=== PATIENT | female | born 1985 | race Caucasian/White ===

== ENCOUNTER 2018-06-28 15:50 | Inpatient (IN) ==
[2018-06-28 16:34] LABS: Baso % (Auto) 0.6 % (0.0-2.0); Eos # (Auto) 0.1 th/mm3 (0.0-0.4); Eos % (Auto) 1.4 % (0.0-4.0); Hematocrit 38.7 % (35.0-46.0); Hemoglobin 13.1 gm/dL (11.6-15.3); Lymph # (Auto) 1.9 th/mm3 (1.0-4.8); Lymph % (Auto) 42.6 % (9.0-44.0); Mean Corpuscular HGB Conc 33.8 % (32.0-36.0); Mean Corpuscular Hemoglobin 28.2 pg (27.0-34.0); Mean Corpuscular Volume 83.5 fL (80.0-100.0); Mean Platelet Volume 9.6 fL (7.0-11.0); Mono # (Auto) 0.4 th/mm3 (0.0-0.9); Mono % (Auto) 7.8 % (0.0-8.0); Neut # (Auto) 2.2 th/mm3 (1.8-7.7); Neut % (Auto) 47.6 % (16.0-70.0); Platelet Count 206 th/mm3 (150-450); Red Blood Count 4.64 mil/mm3 (4.00-5.30); Red Cell Distribution Width 13.3 % (11.6-17.2); White Blood Count 4.5 th/mm3 (4.0-11.0)
[2018-06-28 17:03] LABS: Albumin 3.1 g/dL (3.4-5.0); Anion Gap 8 meq/L (5-15); Aspartate Aminotransferase 20 U/L (15-37); Blood Urea Nitrogen 19 mg/dL (7-18); Calcium 10.3 mg/dL (8.5-10.1); Chloride 100 meq/L (98-107); Glomerular Filtration Rate Greater Than 89 mL/min (>89); Glucose,Random 342 mg/dL (74-106); Potassium 3.9 meq/L (3.5-5.1); Sodium 137 meq/L (136-145)
[2018-06-28 17:04] LABS: Alanine Aminotransferase 26 U/L (10-53)
[2018-06-28 17:13] LABS: Alkaline Phosphatase 78 U/L (45-117); Thyroid Stimulating Hormone 0.612 uIU/mL (0.358-3.740); Total Protein 8.3 g/dL (6.4-8.2)
[2018-06-28] MEDS ORDERED: Dextrose 50% in Water 50 ML Vial IV.PUSH PRN (17:28)
[2018-06-28] MEDS ORDERED: Sod Chloride 0.9% Inj 1,000 ML IV.SIG SCH (17:30)
--- NOTE | 2018-06-28 17:33 | ED ---
HPI General Chief Complaint: Psychiatric Symptoms Stated Complaint: Psych eval / [facility] Time Seen by Provider: 06/29/18 14:35 Source: patient and RN notes reviewed Mode of arrival: ambulatory Limitations: no limitations History of Present Illness HPI Narrative: 33-year-old female presents to the emergency department by police under [place] act by her psychiatrist. The patient is alert and oriented to person, place, time. She reports history of bipolar disorder and type 2 diabetes. She states she is not on any medications for her bipolar disorder. According the [place] act, she is trying to kill herself. She is taking care of by her grandmother. The patient denies any suicidal homicidal ideations to me. She denies any alcohol, tobacco, illicit drug use. She denies any symptoms or complaints. Moderate severity. Duration: constant History of same: Yes Relieving factors: medication Exacerbating factors: other (Not taking medication) Context: not taking psychiatric medications Associated psychiatric symptoms: none Associated symptoms: denies other symptoms Treatments prior to arrival: placed on mental health hold Related Data Home Medications Medication Instructions Recorded Confirmed Humalog KwikPen Insulin 10 units SUBCUT TIDAC 06/28/18 06/28/18 ibuprofen 800 mg PO DIRECTED 06/28/18 06/28/18 insulin glargine [Lantus Solostar 25 unit SUBCUT DAILY 06/28/18 06/28/18 U-100 Insulin] quetiapine 50 mg PO DAILY 06/28/18 06/28/18 risperidone 2 mg PO BID 06/28/18 06/28/18 trifluridine 1 drp LEFT EYE DIRECTED 06/28/18 06/28/18 Allergies Allergy/AdvReac Type Severity Reaction Status Date / Time No Known Allergies Allergy Verified 06/28/18 20:50 Review of Systems ROS: all other systems reviewed are negative PMFSH Social History Social History Substance History: No History of Abuse Second Hand Smoke Exposure: No Smoking Status: Never smoker How Often Do You Have a Drink Containing Alcohol: Never Recent Travel in [facility] within the Last 8 Weeks: No Recent Out of Country Travel within the Last 8 Weeks: No Exam Narrative Exam Narrative: GENERAL: Well-nourished, well-developed female patient, afebrile. Patient is alert and oriented to person, place, time. SKIN: Focused skin assessment warm/dry. HEAD: Normocephalic. Atraumatic. EYES: No scleral icterus. No injection or drainage. NECK: Supple, trachea midline. No JVD or lymphadenopathy. CARDIOVASCULAR: Regular rate and rhythm without murmurs, gallops, or rubs. RESPIRATORY: Breath sounds equal bilaterally. No accessory muscle use. Lung sounds are clear to auscultation GASTROINTESTINAL: Abdomen soft, non-tender, nondistended. MUSCULOSKELETAL: No cyanosis, or edema. BACK: Nontender without obvious deformity. No CVA tenderness. Course Initial Documented Vital Signs Temperature 98.3 F 06/28/18 16:09 Pulse Rate 138 H 06/28/18 16:09 Respiratory Rate 20 06/28/18 16:09 Blood Pressure 131/86 06/28/18 16:09 Pulse Oximetry 100 06/28/18 16:09 Last Documented Vital Signs Temperature 98.3 F 06/30/18 05:41 Pulse Rate 100 H 06/30/18 05:41 Respiratory Rate 18 06/30/18 05:41 Blood Pressure 121/65 06/30/18 05:41 Pulse Oximetry 96 06/30/18 05:41 Medical Decision Making MDM Narrative Medical decision making narrative: CMP shows hyperglycemia 342.33-year-old female presents to the emergency department under [place] act for psychiatric evaluation. CBC, CMP, TSH, alcohol level, urine drug screen, UA are ordered and pending. Patient is given normal saline 1 L IV bolus for tachycardia. Patient was placed on sliding scale insulin. CBC is unremarkable. CMP shows elevated BUN 19, hyperglycemia 342. Alcohol level is less than 3. TSH is 0.612. Urine drug screen is negative. UA shows large leukocyte esterase, few WBC clumps, moderate bacteria. UPT is negative. Patient is given Rocephin 1 g IV for UTI. She is given NS 1 L IV bolus for tachycardia. HR is now 103. She has no complaints. Patient is medically cleared for psychiatric screening and disposition. Medical Screen Exam Complete: Yes Emergency Medical Condition: Yes Differential Diagnosis Differential Diagnosis: Bipolar disorder versus schizophrenia versus medication noncompliance versus electrolyte abnormality Medical Records Medical records reviewed: Yes I reviewed the patient's medical records. Lab Data Result diagrams: 06/28/18 14:11 06/30/18 06:25 POC Results POC Urine Results Negative POC Urine Results Negative Lab Results 06/28/18 06/28/18 06/28/18 Range/Units 14:11 14:11 16:42 WBC 4.5 (4.0-11.0) th/mm3 RBC 4.64 (4.00-5.30) mil/mm3 Hgb 13.1 (11.6-15.3) gm/dL Hct 38.7 (35.0-46.0) % MCV 83.5 (80.0-100.0) fL MCH 28.2 (27.0-34.0) pg MCHC 33.8 (32.0-36.0) % RDW 13.3 (11.6-17.2) % Plt Count 206 (150-450) th/mm3 MPV 9.6 (7.0-11.0) fL Neut % (Auto) 47.6 (16.0-70.0) % Lymph % (Auto) 42.6 (9.0-44.0) % Kimble % (Auto) 7.8 (0.0-8.0) % Eos % (Auto) 1.4 (0.0-4.0) % Baso % (Auto) 0.6 (0.0-2.0) % Neut # (Auto) 2.2 (1.8-7.7) th/mm3 Lymph # (Auto) 1.9 (1.0-4.8) th/mm3 Kimble # (Auto) 0.4 (0.0-0.9) th/mm3 Eos # (Auto) 0.1 (0.0-0.4) th/mm3 Baso # (Auto) 0.0 (0.0-0.2) th/mm3 WBC Differential . Differential Comment Auto diff final Sodium 137 (136-145) meq/L Potassium 3.9 (3.5-5.1) meq/L Chloride 100 (98-107) meq/L Carbon Dioxide 29.0 (21.0-32.0) meq/L Anion Gap 8 (5-15) meq/L BUN 19 H (7-18) mg/dL Creatinine 0.67 (0.50-1.00) mg/dL Estimated GFR Greater than 89 (>89) mL/min POC Glucose 356 H (68-110) mg/dl Random Glucose 342 H (74-106) mg/dL Hemoglobin A1c (4.3-6.0) % Calcium 10.3 H (8.5-10.1) mg/dL Total Bilirubin 0.3 (0.2-1.0) mg/dL AST 20 (15-37) U/L ALT 26 (10-53) U/L Alkaline Phosphatase 78 (45-117) U/L Total Protein 8.3 H (6.4-8.2) g/dL Albumin 3.1 L (3.4-5.0) g/dL Triglycerides (42-150) mg/dL Cholesterol (120-200) mg/dL LDL Cholesterol, Calc (0-99) mg/dL HDL Cholesterol (40.0-60.0) mg/dL Cholesterol/HDL Ratio Ratio TSH 0.612 (0.358-3.740) uIU/mL Free T4 (0.76-1.46) ng/dL Urine Color (Yellw/Straw) Urine Clarity (Clear) Urine pH (5.0-8.5) Ur Specific [place] (1.002-1.035) Urine Protein (Neg-Trace) mg/dL Urine Glucose (UA) (Negative) mg/dL Urine Ketones (Negative) mg/dL Urine Occult Blood (Negative) Urine Nitrate (Negative) Urine Bilirubin (Negative) Urine Urobilinogen (Less than 2) mg/dL Ur Leukocyte Esterase (Negative) Urine RBC (0-3) /hpf Urine WBC (0-5) /hpf Urine WBC Clumps (None) Ur Squamous Epith Cells (0-5) /hpf Urine Bacteria (None) /hpf Urine Mucus (Occasional) /lpf Urine Yeast (None) /hpf Micro UA Comment Ur Microscopic Review Urine Culture Comments Urine Opiates Screen (Neg) Ur Barbiturates Screen (Neg) Ur Amphetamines Screen (Neg) U Benzodiazepines Scrn (Neg) Urine Cocaine Screen (Neg) U Cannabinoids Screen (Neg) Serum Alcohol Less than 3 (0-5) mg/dL 06/28/18 06/28/18 06/29/18 Range/Units 16:55 16:55 16:24 WBC (4.0-11.0) th/mm3 RBC (4.00-5.30) mil/mm3 Hgb (11.6-15.3) gm/dL Hct (35.0-46.0) % MCV (80.0-100.0) fL MCH (27.0-34.0) pg MCHC (32.0-36.0) % RDW (11.6-17.2) % Plt Count (150-450) th/mm3 MPV (7.0-11.0) fL Neut % (Auto) (16.0-70.0) % Lymph % (Auto) (9.0-44.0) % Kimble % (Auto) (0.0-8.0) % Eos % (Auto) (0.0-4.0) % Baso % (Auto) (0.0-2.0) % Neut # (Auto) (1.8-7.7) th/mm3 Lymph # (Auto) (1.0-4.8) th/mm3 Kimble # (Auto) (0.0-0.9) th/mm3 Eos # (Auto) (0.0-0.4) th/mm3 Baso # (Auto) (0.0-0.2) th/mm3 WBC Differential Differential Comment Sodium (136-145) meq/L Potassium (3.5-5.1) meq/L Chloride (98-107) meq/L Carbon Dioxide (21.0-32.0) meq/L Anion Gap (5-15) meq/L BUN (7-18) mg/dL Creatinine (0.50-1.00) mg/dL Estimated GFR (>89) mL/min POC Glucose 349 H (68-110) mg/dl Random Glucose (74-106) mg/dL Hemoglobin A1c (4.3-6.0) % Calcium (8.5-10.1) mg/dL Total Bilirubin (0.2-1.0) mg/dL AST (15-37) U/L ALT (10-53) U/L Alkaline Phosphatase (45-117) U/L Total Protein (6.4-8.2) g/dL Albumin (3.4-5.0) g/dL Triglycerides (42-150) mg/dL Cholesterol (120-200) mg/dL LDL Cholesterol, Calc (0-99) mg/dL HDL Cholesterol (40.0-60.0) mg/dL Cholesterol/HDL Ratio Ratio TSH (0.358-3.740) uIU/mL Free T4 (0.76-1.46) ng/dL Urine Color Yellow (Yellw/Straw) Urine Clarity Cloudy H (Clear) Urine pH 7.0 (5.0-8.5) Ur Specific [place] 1.025 (1.002-1.035) Urine Protein 100 H (Neg-Trace) mg/dL Urine Glucose (UA) 500 or greater (Negative) mg/dL Urine Ketones Negative (Negative) mg/dL Urine Occult Blood Small H (Negative) Urine Nitrate Negative (Negative) Urine Bilirubin Negative (Negative) Urine Urobilinogen Less than 2 (Less than 2) mg/dL Ur Leukocyte Esterase Large H (Negative) Urine RBC 28 H (0-3) /hpf Urine WBC (0-5) /hpf Urine WBC Clumps Few H (None) Ur Squamous Epith Cells 10 (0-5) /hpf Urine Bacteria Moderate H (None) /hpf Urine Mucus Few H (Occasional) /lpf Urine Yeast Few H (None) /hpf Micro UA Comment Culture indicated Ur Microscopic Review Not Reportable Urine Culture Comments Culture indicated Urine Opiates Screen Neg (Neg) Ur Barbiturates Screen Neg (Neg) Ur Amphetamines Screen Neg (Neg) U Benzodiazepines Scrn Neg (Neg) Urine Cocaine Screen Neg (Neg) U Cannabinoids Screen Neg (Neg) Serum Alcohol (0-5) mg/dL 06/29/18 06/29/18 06/29/18 Range/Units 19:35 19:35 19:55 WBC (4.0-11.0) th/mm3 RBC (4.00-5.30) mil/mm3 Hgb (11.6-15.3) gm/dL Hct (35.0-46.0) % MCV (80.0-100.0) fL MCH (27.0-34.0) pg MCHC (32.0-36.0) % RDW (11.6-17.2) % Plt Count (150-450) th/mm3 MPV (7.0-11.0) fL Neut % (Auto) (16.0-70.0) % Lymph % (Auto) (9.0-44.0) % Kimble % (Auto) (0.0-8.0) % Eos % (Auto) (0.0-4.0) % Baso % (Auto) (0.0-2.0) % Neut # (Auto) (1.8-7.7) th/mm3 Lymph # (Auto) (1.0-4.8) th/mm3 Kimble # (Auto) (0.0-0.9) th/mm3 Eos # (Auto) (0.0-0.4) th/mm3 Baso # (Auto) (0.0-0.2) th/mm3 WBC Differential Differential Comment Sodium (136-145) meq/L Potassium (3.5-5.1) meq/L Chloride (98-107) meq/L Carbon Dioxide (21.0-32.0) meq/L Anion Gap (5-15) meq/L BUN (7-18) mg/dL Creatinine (0.50-1.00) mg/dL Estimated GFR (>89) mL/min POC Glucose 397 H (68-110) mg/dl Random Glucose (74-106) mg/dL Hemoglobin A1c 15.5 H (4.3-6.0) % Calcium (8.5-10.1) mg/dL Total Bilirubin (0.2-1.0) mg/dL AST (15-37) U/L ALT (10-53) U/L Alkaline Phosphatase (45-117) U/L Total Protein (6.4-8.2) g/dL Albumin (3.4-5.0) g/dL Triglycerides 175 H (42-150) mg/dL Cholesterol 224 H (120-200) mg/dL LDL Cholesterol, Calc 149 H (0-99) mg/dL HDL Cholesterol 40.1 (40.0-60.0) mg/dL Cholesterol/HDL Ratio 5.58 Ratio TSH (0.358-3.740) uIU/mL Free T4 (0.76-1.46) ng/dL Urine Color (Yellw/Straw) Urine Clarity (Clear) Urine pH (5.0-8.5) Ur Specific [place] (1.002-1.035) Urine Protein (Neg-Trace) mg/dL Urine Glucose (UA) (Negative) mg/dL Urine Ketones (Negative) mg/dL Urine Occult Blood (Negative) Urine Nitrate (Negative) Urine Bilirubin (Negative) Urine Urobilinogen (Less than 2) mg/dL Ur Leukocyte Esterase (Negative) Urine RBC (0-3) /hpf Urine WBC (0-5) /hpf Urine WBC Clumps (None) Ur Squamous Epith Cells (0-5) /hpf Urine Bacteria (None) /hpf Urine Mucus (Occasional) /lpf Urine Yeast (None) /hpf Micro UA Comment Ur Microscopic Review Urine Culture Comments Urine Opiates Screen (Neg) Ur Barbiturates Screen (Neg) Ur Amphetamines Screen (Neg) U Benzodiazepines Scrn (Neg) Urine Cocaine Screen (Neg) U Cannabinoids Screen (Neg) Serum Alcohol (0-5) mg/dL 06/30/18 06/30/18 06/30/18 Range/Units 03:02 06:25 07:35 WBC (4.0-11.0) th/mm3 RBC (4.00-5.30) mil/mm3 Hgb (11.6-15.3) gm/dL Hct (35.0-46.0) % MCV (80.0-100.0) fL MCH (27.0-34.0) pg MCHC (32.0-36.0) % RDW (11.6-17.2) % Plt Count (150-450) th/mm3 MPV (7.0-11.0) fL Neut % (Auto) (16.0-70.0) % Lymph % (Auto) (9.0-44.0) % Kimble % (Auto) (0.0-8.0) % Eos % (Auto) (0.0-4.0) % Baso % (Auto) (0.0-2.0) % Neut # (Auto) (1.8-7.7) th/mm3 Lymph # (Auto) (1.0-4.8) th/mm3 [place] # (Auto) (0.0-0.9) th/mm3 Eos # (Auto) (0.0-0.4) th/mm3 Baso # (Auto) (0.0-0.2) th/mm3 WBC Differential Differential Comment Sodium 142 (136-145) meq/L Potassium 3.6 (3.5-5.1) meq/L Chloride 108 H D (98-107) meq/L Carbon Dioxide 25.6 (21.0-32.0) meq/L Anion Gap 8 (5-15) meq/L BUN 19 H (7-18) mg/dL Creatinine 0.48 L (0.50-1.00) mg/dL Estimated GFR Greater than 89 (>89) mL/min POC Glucose 284 H 221 H (68-110) mg/dl Random Glucose 185 H D (74-106) mg/dL Hemoglobin A1c (4.3-6.0) % Calcium 9.3 D (8.5-10.1) mg/dL Total Bilirubin (0.2-1.0) mg/dL AST (15-37) U/L ALT (10-53) U/L Alkaline Phosphatase (45-117) U/L Total Protein (6.4-8.2) g/dL Albumin (3.4-5.0) g/dL Triglycerides 113 (42-150) mg/dL Cholesterol 215 H (120-200) mg/dL LDL Cholesterol, Calc 156 H (0-99) mg/dL HDL Cholesterol 36.9 L (40.0-60.0) mg/dL Cholesterol/HDL Ratio 5.82 Ratio TSH (0.358-3.740) uIU/mL Free T4 1.05 (0.76-1.46) ng/dL Urine Color (Yellw/Straw) Urine Clarity (Clear) Urine pH (5.0-8.5) Ur Specific [place] (1.002-1.035) Urine Protein (Neg-Trace) mg/dL Urine Glucose (UA) (Negative) mg/dL Urine Ketones (Negative) mg/dL Urine Occult Blood (Negative) Urine Nitrate (Negative) Urine Bilirubin (Negative) Urine Urobilinogen (Less than 2) mg/dL Ur Leukocyte Esterase (Negative) Urine RBC (0-3) /hpf Urine WBC (0-5) /hpf Urine WBC Clumps (None) Ur Squamous Epith Cells (0-5) /hpf Urine Bacteria (None) /hpf Urine Mucus (Occasional) /lpf Urine Yeast (None) /hpf Micro UA Comment Ur Microscopic Review Urine Culture Comments Urine Opiates Screen (Neg) Ur Barbiturates Screen (Neg) Ur Amphetamines Screen (Neg) U Benzodiazepines Scrn (Neg) Urine Cocaine Screen (Neg) U Cannabinoids Screen (Neg) Serum Alcohol (0-5) mg/dL Discharge Plan Discharge Disposition Patient Disposition: 30 Still Patient Discharge Details Diagnosis: Schizophrenia Physicians Team ED Provider: Minnie Wills ED Midlevel Provider: Marcela Dixon Primary Care Provider: Gino Rankin Attending Provider: Ten Jaffe Other Providers: Barry Voss Discharge Interventions Interventions: ED Discharge Assessment Last Done: 06/29/18 17:28 Vital Signs Last Done: 06/29/18 11:53 Status ED Status: Left Department Discharge Information Discharge Date/Time: 06/29/18 17:29
[2018-06-28 18:01] LABS: Amphetamine Screen,Urine Neg (Neg); Bacteria,Urine Moderate /hpf; Barbiturate Screen,Urine Neg (Neg); Bilirubin,Urine Negative (Negative); Cannabinoid Screen,Urine Neg (Neg); Clarity,Urine Cloudy (Clear); Cocaine Screen,Urine Neg (Neg); Color,Urine Yellow (Yellw/Straw); Glucose,Urine (UA) 500 or Greater mg/dL (Negative); Leukocyte Esterase,Urine Large (Negative); Mucus,Urine Few /lpf (Occasional); Nitrite,Urine Negative (Negative); Specific Gravity,Urine 1.025 (1.002-1.035); Squamous Epithelial Cell,Urine 10 /hpf (0-5)
[2018-06-28 18:09] LABS: Opiate Screen,Urine Neg (Neg)
[2018-06-28] MEDS: Insulin NovoLOG Aspart Correctional Sugar Inj SQ SCH ×2 (19:57→23:57)
[2018-06-29] MEDS ORDERED: Acetaminophen 325 MG Tablet PO ONE (03:14)
[2018-06-29] MEDS: Insulin NovoLOG Aspart Correctional Sugar Inj SQ SCH ×4 (09:48→20:55)
--- NOTE | 2018-06-29 14:53 | ED ---
HPI - Psych - General Source: patient, RN notes reviewed, old records reviewed Mode of arrival: ambulatory Limitations: language barrier, other (mental disability) - History of Present Illness MD complaint: suicidal ideation Onset (ago): day(s) Duration: constant History of same: Yes Relieving factors: medication Exacerbating factors: other (Not taking medication) Context: not taking psychiatric medications Associated psychiatric symptoms: none (Unable to obtain) Associated symptoms: denies other symptoms Treatments prior to arrival: placed on mental health hold If self harm: other (Denies) - General Chief Complaint: Psychiatric Symptoms Stated Complaint: Psych eval / VCSO Time Seen by Provider: 06/29/18 14:35 - History of Present Illness HPI Narrative: History of Present Illness HPI Narrative: 33-year-old, single, predominantly Lithuanian speaking female with hx of schizophrenia and mental disability who presents to the emergency department by police under Campbell act by her psychiatrist Dr. Heriberto Dc. The Campbell act alleges amongst other things that the grandmother reports the patient has not been taking any medications including psychiatric medications for over 1 year, has been stating that she is going to kill herself , has been crying all day long, saying bad language, yelling out and crying all day long. Also alleges that she has been having paranoid like thoughts toward her neighbor, throwing out objects at home and slamming the doors, talking to herself like responding to internal stimuli and also audiovisual hallucinations. Grandmother states she is afraid of being harmed by the patient. Upon arrival to the ED the patient presented with elevated glucose level and required treatment for such. Her last documented blood glucoses 342. EMR is reviewed. The patient according to the record was treated at [facility] and later transitioned to the adult outpatient clinic. She was last seen at [facility] in 2013 and at that time was admitted to our inpatient unit for treatment of psychosis, suicidal ideation. The patient does not use illegal substances. Current toxicology is negative. The patient is alert and oriented to person, place, time. She has been crying because she wants to be home with her family. I am unable to obtain any other information from her at this time. She does tell me that if she goes home that she will take her medicine. She denies suicidal or homicidal ideations to me. She has not been agitated. I have attempted to contact her family numerous time and have been unable to do so. I have called the numbers on her record including [phone], [phone], as well as [phone] which her is her uncles number but there was no answer. (Marika Pedroza) - Related Data Home Medications Medication Instructions Recorded Confirmed Humalog KwikPen Insulin 10 units SUBCUT TIDAC 06/28/18 06/28/18 ibuprofen 800 mg PO DIRECTED 06/28/18 06/28/18 insulin glargine [Lantus Solostar 25 unit SUBCUT DAILY 06/28/18 06/28/18 U-100 Insulin] quetiapine 50 mg PO DAILY 06/28/18 06/28/18 risperidone 2 mg PO BID 06/28/18 06/28/18 trifluridine 1 drp LEFT EYE DIRECTED 06/28/18 06/28/18 Allergies Allergy/AdvReac Type Severity Reaction Status Date / Time No Known Allergies Allergy Verified 06/28/18 20:50 PMFSH - History History Provided By: Patient - Social History I have reviewed the patient's Social History: Yes - Tobacco History Smoking Status: Never smoker - Alcohol History How Often Do You Have a Drink Containing Alcohol: Never - Substance Use History Substance History: No History of Abuse - Immunization History Tetanus Immunization: Unsure Hx Influenza Vaccine This Season: No Psychiatric History - Psychiatric History Psychiatric Treatment History: History of Hospitalization in a Psychiatric Facility History of Inpatient Treatment: Yes Firearms in Home: No - Psychiatric History Medical record indicates that the patient has received treatment as an adolescent at [facility]. She has 1 psychiatric admission at our inpatient psychiatric unit in 2013. (Marika Pedroza) Physical Exam - General Limitations: no limitations Mental Status Examination Consciousness: Alert Orientation: Person, Place, Date/Time Motor Activity: Normal gait Speech: Slow Language: Adequate Fund of Knowledge: Inadequate Attention and Concentration: Adequate Memory: Unremarkable Mood: Sad Affect: Other Thought Process & Associations: Intact (Tearful), Logical Thought Content: Appropriate Hallucination Type: None (She denies) Delusion Type: None Suicidal Ideation: No Suicidal Plan: No Suicidal Intention: No Homicidal Ideation: No Homicidal Plan: No Homicidal Intention: No Insight: Poor Judgment: Poor Initial Documented Vital Signs Temperature 98.3 F 06/28/18 16:09 Pulse Rate 138 H 06/28/18 16:09 Respiratory Rate 20 06/28/18 16:09 Blood Pressure 131/86 06/28/18 16:09 Pulse Oximetry 100 06/28/18 16:09 Last Documented Vital Signs Temperature 98.3 F 06/28/18 16:09 Pulse Rate 119 H 06/29/18 11:53 Respiratory Rate 20 06/29/18 11:53 Blood Pressure 145/102 H 06/29/18 11:53 Pulse Oximetry 97 06/29/18 11:53 MDM - Psych - Diagnosis (1) Schizophrenia Status: Acute - Lab Data Result diagrams: 06/28/18 14:11 06/28/18 14:11 - MDM Narrative Medical decision making narrative: 33-year-old female with history of schizophrenia and intellectual disability who is sent to the emergency department by her outpatient psychiatrist Dr. Heriberto Dc who alleges the patient's family reported that she has not been taking medications for over a year, has been stating that she is going to kill herself as well as crying all day long. There is some allegation that she has been agitated using foul language, yelling, throwing objects and slamming doors. Her grandmother stated that she was afraid that the patient would harm her as well as harming herself. The patient did present with elevated blood glucose indicative of possibly not taking adequate care of herself. I have been unable to contact the family to obtain collateral information. The patient is being admitted to inpatient psychiatry for further evaluation, monitoring, stabilization, and medication adjustment. I will also (Marika Pedroza) - Lab Data POC Results POC Urine Results Negative POC Urine Results Negative Lab Results 06/28/18 06/28/18 06/28/18 Range/Units 14:11 14:11 16:42 WBC 4.5 (4.0-11.0) th/mm3 RBC 4.64 (4.00-5.30) mil/mm3 Hgb 13.1 (11.6-15.3) gm/dL Hct 38.7 (35.0-46.0) % MCV 83.5 (80.0-100.0) fL MCH 28.2 (27.0-34.0) pg MCHC 33.8 (32.0-36.0) % RDW 13.3 (11.6-17.2) % Plt Count 206 (150-450) th/mm3 MPV 9.6 (7.0-11.0) fL Neut % (Auto) 47.6 (16.0-70.0) % Lymph % (Auto) 42.6 (9.0-44.0) % [place] % (Auto) 7.8 (0.0-8.0) % Eos % (Auto) 1.4 (0.0-4.0) % Baso % (Auto) 0.6 (0.0-2.0) % Neut # (Auto) 2.2 (1.8-7.7) th/mm3 Lymph # (Auto) 1.9 (1.0-4.8) th/mm3 [place] # (Auto) 0.4 (0.0-0.9) th/mm3 Eos # (Auto) 0.1 (0.0-0.4) th/mm3 Baso # (Auto) 0.0 (0.0-0.2) th/mm3 WBC Differential . Differential Comment Auto diff final Sodium 137 (136-145) meq/L Potassium 3.9 (3.5-5.1) meq/L Chloride 100 (98-107) meq/L Carbon Dioxide 29.0 (21.0-32.0) meq/L Anion Gap 8 (5-15) meq/L BUN 19 H (7-18) mg/dL Creatinine 0.67 (0.50-1.00) mg/dL Estimated GFR Greater than 89 (>89) mL/min POC Glucose 356 H (68-110) mg/dl Random Glucose 342 H (74-106) mg/dL Calcium 10.3 H (8.5-10.1) mg/dL Total Bilirubin 0.3 (0.2-1.0) mg/dL AST 20 (15-37) U/L ALT 26 (10-53) U/L Alkaline Phosphatase 78 (45-117) U/L Total Protein 8.3 H (6.4-8.2) g/dL Albumin 3.1 L (3.4-5.0) g/dL TSH 0.612 (0.358-3.740) uIU/mL Urine Color (Yellw/Straw) Urine Clarity (Clear) Urine pH (5.0-8.5) Ur Specific [place] (1.002-1.035) Urine Protein (Neg-Trace) mg/dL Urine Glucose (UA) (Negative) mg/dL Urine Ketones (Negative) mg/dL Urine Occult Blood (Negative) Urine Nitrate (Negative) Urine Bilirubin (Negative) Urine Urobilinogen (Less than 2) mg/dL Ur Leukocyte Esterase (Negative) Urine RBC (0-3) /hpf Urine WBC (0-5) /hpf Urine WBC Clumps (None) Ur Squamous Epith Cells (0-5) /hpf Urine Bacteria (None) /hpf Urine Mucus (Occasional) /lpf Urine Yeast (None) /hpf Micro UA Comment Ur Microscopic Review Urine Culture Comments Urine Opiates Screen (Neg) Ur Barbiturates Screen (Neg) Ur Amphetamines Screen (Neg) U Benzodiazepines Scrn (Neg) Urine Cocaine Screen (Neg) U Cannabinoids Screen (Neg) Serum Alcohol Less than 3 (0-5) mg/dL 06/28/18 06/28/18 Range/Units 16:55 16:55 WBC (4.0-11.0) th/mm3 RBC (4.00-5.30) mil/mm3 Hgb (11.6-15.3) gm/dL Hct (35.0-46.0) % MCV (80.0-100.0) fL MCH (27.0-34.0) pg MCHC (32.0-36.0) % RDW (11.6-17.2) % Plt Count (150-450) th/mm3 MPV (7.0-11.0) fL Neut % (Auto) (16.0-70.0) % Lymph % (Auto) (9.0-44.0) % [place] % (Auto) (0.0-8.0) % Eos % (Auto) (0.0-4.0) % Baso % (Auto) (0.0-2.0) % Neut # (Auto) (1.8-7.7) th/mm3 Lymph # (Auto) (1.0-4.8) th/mm3 [place] # (Auto) (0.0-0.9) th/mm3 Eos # (Auto) (0.0-0.4) th/mm3 Baso # (Auto) (0.0-0.2) th/mm3 WBC Differential Differential Comment Sodium (136-145) meq/L Potassium (3.5-5.1) meq/L Chloride (98-107) meq/L Carbon Dioxide (21.0-32.0) meq/L Anion Gap (5-15) meq/L BUN (7-18) mg/dL Creatinine (0.50-1.00) mg/dL Estimated GFR (>89) mL/min POC Glucose (68-110) mg/dl Random Glucose (74-106) mg/dL Calcium (8.5-10.1) mg/dL Total Bilirubin (0.2-1.0) mg/dL AST (15-37) U/L ALT (10-53) U/L Alkaline Phosphatase (45-117) U/L Total Protein (6.4-8.2) g/dL Albumin (3.4-5.0) g/dL TSH (0.358-3.740) uIU/mL Urine Color Yellow (Yellw/Straw) Urine Clarity Cloudy H (Clear) Urine pH 7.0 (5.0-8.5) Ur Specific [place] 1.025 (1.002-1.035) Urine Protein 100 H (Neg-Trace) mg/dL Urine Glucose (UA) 500 or greater (Negative) mg/dL Urine Ketones Negative (Negative) mg/dL Urine Occult Blood Small H (Negative) Urine Nitrate Negative (Negative) Urine Bilirubin Negative (Negative) Urine Urobilinogen Less than 2 (Less than 2) mg/dL Ur Leukocyte Esterase Large H (Negative) Urine RBC 28 H (0-3) /hpf Urine WBC (0-5) /hpf Urine WBC Clumps Few H (None) Ur Squamous Epith Cells 10 (0-5) /hpf Urine Bacteria Moderate H (None) /hpf Urine Mucus Few H (Occasional) /lpf Urine Yeast Few H (None) /hpf Micro UA Comment Culture indicated Ur Microscopic Review Not Reportable Urine Culture Comments Culture indicated Urine Opiates Screen Neg (Neg) Ur Barbiturates Screen Neg (Neg) Ur Amphetamines Screen Neg (Neg) U Benzodiazepines Scrn Neg (Neg) Urine Cocaine Screen Neg (Neg) U Cannabinoids Screen Neg (Neg) Serum Alcohol (0-5) mg/dL
[2018-06-29] MEDS ORDERED: LORazepam 1 MG Tablet PO PRN (15:45)
[2018-06-29] MEDS ORDERED: Aluminum/Magnesium/Simethacone Susp 30 ML UDC PO PRN (15:45)
--- NOTE | 2018-06-29 17:29 | P.CON ---
History of Present Illness Consult date: 06/29/18 Requesting Physician: Reno Sun Reason for Consult: MEDICAL MANAGEMENT Primary Care Provider: Gino Rankin MD Chief Complaint: Hyperglycemia History of Present Illness: This is a pleasant 33 y/o Female who has history of Schizophrenia, has DM II, on this admission she was brought in to ER as Campbell act by Psychiatrist, The patient is alert and oriented to person , place, time. She reports history of bipolar disorder and type 2 diabetes. not taking medicines for her Bipolar disorder, She tried to kill herself, She is taking care of by her grandmother. denied to Psychiatry specialist any homicidal ideations. found with hyperglycemia 342, Drug screen negative, UA showed Leukocyte Esterase given Rocephin 1 Gram fro UTI, with diagnosis of Bipolar disorder versus Schizophrenia, non compliance versus electrolyte abnormality. Stable seen in Psychiatric unit, no complaint at this time, showed me some Onychomycosis. Review of Systems All other systems reviewed negative except as stated in HPI PMFSH - History History Provided By: Patient - Medical History Medical History: Medical History (Last Updated 06/29/18 @ 17:53 by Barry Voss MD) Bipolar 1 disorder, depressed, severe Diabetes mellitus type 2 in nonobese - Surgical History Surgical History: Surgical History (Last Updated 06/29/18 @ 17:53 by Barry Voss MD) No history of previous surgery - Family History Family History: Family History (Last Updated 06/29/18 @ 17:54 by Barry Voss MD) Other Family history of breast cancer - Social History I have reviewed the patient's Social History: Yes - Tobacco History Smoking Status: Never smoker - Alcohol History How Often Do You Have a Drink Containing Alcohol: Never - Substance Use History Substance History: No History of Abuse - Immunization History Tetanus Immunization: Unsure Hx Influenza Vaccine This Season: No Medications and Allergies Active Medications: Active Medications Al Hydrox/Mg Hydrox/Simethicone (Mag-Al Plus Susp Liq) 30 ml PO Q6H PRN PRN Reason: DYSPEPSIA Al Hydroxide/Mg Hydroxide (Milk Of Magnesia Liq) 30 ml PO Q12H PRN PRN Reason: Mild Constipation Dextrose (D50w Vial) 50 ml IV.PUSH UNSCH PRN PRN Reason: PER HYPOGLYCEMIA PROTOCOL Diphenhydramine HCl (Benadryl) 50 mg PO HS PRN PRN Reason: INSOMNIA Glucagon (Glucagon Inj) 1 mg OTHER PRN PRN PRN Reason: for Hypoglycemia Protocol Sodium Chloride (Ns Inj) 1,000 mls @ 0 mls/hr IV.SIG BOLUS LINH Last Infusion: 06/28/18 19:08 Dose: Infused Insulin Aspart (Novolog Insulin Correctional Sugar Inj) 0 unit SQ ACHS LINH; Protocol Last Admin: 06/29/18 16:37 Dose: 7 unit Lorazepam (Ativan) 1 mg PO Q6H PRN PRN Reason: MODERATE TO SEVERE ANXIETY Sennosides (Senokot) 17.2 mg PO Q12H PRN PRN Reason: Moderate Constipation Allergies Allergy/AdvReac Type Severity Reaction Status Date / Time No Known Allergies Allergy Verified 06/28/18 20:50 Home Medications Medication Instructions Recorded Confirmed Type Humalog KwikPen Insulin 10 units SUBCUT TIDAC 06/28/18 06/28/18 History ibuprofen 800 mg PO DIRECTED 06/28/18 06/28/18 History insulin glargine [Lantus Solostar 25 unit SUBCUT DAILY 06/28/18 06/28/18 History U-100 Insulin] quetiapine 50 mg PO DAILY 06/28/18 06/28/18 History risperidone 2 mg PO BID 06/28/18 06/28/18 History trifluridine 1 drp LEFT EYE DIRECTED 06/28/18 06/28/18 History Physical Exam Vital signs: Vital Signs 06/28/18 17:54 06/28/18 19:00 06/28/18 20:00 Temperature Pulse Rate 135 H 105 H 108 H Respiratory Rate 20 21 18 Blood Pressure 138/78 137/96 H 136/90 Pulse Oximetry 100 98 98 06/29/18 00:51 06/29/18 04:00 06/29/18 07:13 Temperature Pulse Rate 117 H 108 H 103 H Respiratory Rate 18 16 20 Blood Pressure 112/65 120/81 125/86 Pulse Oximetry 98 98 99 06/29/18 11:53 06/29/18 17:24 Temperature 97.8 F Pulse Rate 119 H 116 H Respiratory Rate 20 18 Blood Pressure 145/102 H 123/72 Pulse Oximetry 97 94 L Intake & Output 06/28/18 06/29/18 06/29/18 18:59 06:59 18:59 Intake Total 1100 / 1100 Balance 1100 / 1100 Weight 75.75 kg Intake: IV 1100 / 1100 NS Inj 1,000 ML @ Wide Open IV. 1000 / 1000 SIG BOLUS LINH Rx#:[id number] Rocephin Inj 1,000 MG In NS Inj 100 / 100 100 ML @ 200 mls/hr IV.SIG ONCE ONE Rx#:[id number] Narrative: GENERAL: Well-nourished, well-developed female patient, ambulatory and in no acute distress. SKIN: Warm and dry. HEAD: Normocephalic. Atraumatic. EYES: No scleral icterus. No injection or drainage. NECK: Supple, trachea midline. No JVD or lymphadenopathy. CARDIOVASCULAR: Regular rate and rhythm without murmurs, gallops, or rubs. RESPIRATORY: Breath sounds equal bilaterally. No accessory muscle use. Lungs sounds clear to auscultation. GASTROINTESTINAL: Abdomen soft, non-tender, nondistended. MUSCULOSKELETAL: No cyanosis, or edema. Assessment and Plan - Plan 1. Bipolar disorder versus Schizophrenia on Psychiatric unit specialist following 2. Diabetes mellitus II, the patient uses Insulin Lantus she states use 30 units BID and regular insulin 10 units three times a day, will start slow with long lasting insulin and regular insulin and follow, complete laboratory, TSH, Free T4, Lipid profile, Hemoglobin A1C. UA, CMP and CBC will give recommendations given on clinical course. DVT prophylaxis not needed Code Status: Full code. Discussed Condition With: patient and Nurse. Discharge Planning: as per Attending physician.
[2018-06-29 20:33] LABS: Chol/HDL Ratio 5.58 Ratio; HDL Cholesterol 40.1 mg/dL (40.0-60.0)
[2018-06-29] MEDS ORDERED: Insulin Detemir Inj 1,000 UNIT/10 ML Vial SQ SCH (21:00)
[2018-06-29 21:58] LABS: Hemoglobin A1c 15.5 % (4.3-6.0)
[2018-06-30] MEDS: Insulin NovoLOG Aspart Correctional Sugar Inj SQ SCH ×8 (03:12→21:03)
[2018-06-30 07:42] LABS: Anion Gap 8 meq/L (5-15); Blood Urea Nitrogen 19 mg/dL (7-18); Calcium 9.3 mg/dL (8.5-10.1); Carbon Dioxide 25.6 meq/L (21.0-32.0); Chloride 108 meq/L (98-107); Glomerular Filtration Rate Greater Than 89 mL/min (>89); Glucose,Random 185 mg/dL (74-106); Potassium 3.6 meq/L (3.5-5.1); Sodium 142 meq/L (136-145)
[2018-06-30 08:38] LABS: Chol/HDL Ratio 5.82 Ratio; Cholesterol 215 mg/dL (120-200); Free T4 (Free Thyroxine) 1.05 ng/dL (0.76-1.46); HDL Cholesterol 36.9 mg/dL (40.0-60.0); LDL Cholesterol,Calculated 156 mg/dL (0-99); Triglycerides 113 mg/dL (42-150)
[2018-06-30] MEDS ORDERED: Insulin Detemir Inj 1,000 UNIT/10 ML Vial SQ SCH ×2 (09:00→13:51)
--- NOTE | 2018-06-30 12:15 | P.PN ---
Subjective Interval history: This is a pleasant 33 y/o Female who has history of Schizophrenia, has DM II, on this admission she was brought in to ER as Campbell act by Psychiatrist, The patient is alert and oriented to person , place, time. She reports history of bipolar disorder and type 2 diabetes. not taking medicines for her Bipolar disorder, She tried to kill herself, She is taking care of by her grandmother. denied to Psychiatry specialist any homicidal ideations. found with hyperglycemia 342, Drug screen negative, UA showed Leukocyte Esterase given Rocephin 1 Gram fro UTI, with diagnosis of Bipolar disorder versus Schizophrenia, non compliance versus electrolyte abnormality. Stable seen in Psychiatric unit, no complaint at this time, showed me some Onychomycosis. 06/30: Seen in the Psychiatric unit, she states she wants to go home today, no nausea, vomit or diarrhea, uncontrolled blood sugars increased Levemir to 15 units BID, added one dose of 5 unit of Levemir now and continue to monitor, continue sliding scale and schedule Insulin with meals. Physical Exam Vital signs: Vital Signs 06/29/18 17:24 06/30/18 05:41 Temperature 97.8 F 98.3 F Pulse Rate 116 H 100 H Respiratory Rate 18 18 Blood Pressure 123/72 121/65 Pulse Oximetry 94 L 96 Intake & Output 06/29/18 06/30/18 06/30/18 18:59 06:59 18:59 Intake Total 240 / 240 Balance 240 / 240 Weight 72.121 kg Intake: Oral 240 / 240 Other: Weight On Admission 72.121 kg Narrative: GENERAL: Well-nourished, well-developed female patient, ambulatory and in no acute distress. SKIN: Warm and dry. HEAD: Normocephalic. Atraumatic. EYES: No scleral icterus. No injection or drainage. NECK: Supple, trachea midline. No JVD or lymphadenopathy. CARDIOVASCULAR: Regular rate and rhythm without murmurs, gallops, or rubs. RESPIRATORY: Breath sounds equal bilaterally. No accessory muscle use. Lungs sounds clear to auscultation. GASTROINTESTINAL: Abdomen soft, non-tender, nondistended. MUSCULOSKELETAL: No cyanosis, or edema. Results - Labs CBC & Chem 7: 06/28/18 14:11 06/30/18 06:25 Laboratory Results - last 24 hr 06/28/18 06/29/18 06/29/18 16:55 16:24 19:35 Sodium Potassium Chloride Carbon Dioxide Anion Gap BUN Creatinine Estimated GFR POC Glucose 349 H Random Glucose Hemoglobin A1c 15.5 H Calcium Triglycerides Cholesterol LDL Cholesterol, Calc HDL Cholesterol Cholesterol/HDL Ratio Free T4 Urine Color Yellow Urine Clarity Cloudy H Urine pH 7.0 Ur Specific [place] 1.025 Urine Protein 100 H Urine Glucose (UA) 500 or greater Urine Ketones Negative Urine Occult Blood Small H Urine Nitrate Negative Urine Bilirubin Negative Urine Urobilinogen Less than 2 Ur Leukocyte Esterase Large H Urine RBC 28 H Urine WBC Urine WBC Clumps Few H Ur Squamous Epith Cells 10 Urine Bacteria Moderate H Urine Mucus Few H Urine Yeast Few H Micro UA Comment Culture indicated Urine Culture Comments Culture indicated 06/29/18 06/29/18 06/30/18 19:35 19:55 03:02 Sodium Potassium Chloride Carbon Dioxide Anion Gap BUN Creatinine Estimated GFR POC Glucose 397 H 284 H Random Glucose Hemoglobin A1c Calcium Triglycerides 175 H Cholesterol 224 H LDL Cholesterol, Calc 149 H HDL Cholesterol 40.1 Cholesterol/HDL Ratio 5.58 Free T4 Urine Color Urine Clarity Urine pH Ur Specific [place] Urine Protein Urine Glucose (UA) Urine Ketones Urine Occult Blood Urine Nitrate Urine Bilirubin Urine Urobilinogen Ur Leukocyte Esterase Urine RBC Urine WBC Urine WBC Clumps Ur Squamous Epith Cells Urine Bacteria Urine Mucus Urine Yeast Micro UA Comment Urine Culture Comments 06/30/18 06/30/18 06/30/18 06:25 07:35 11:17 Sodium 142 Potassium 3.6 Chloride 108 H D Carbon Dioxide 25.6 Anion Gap 8 BUN 19 H Creatinine 0.48 L Estimated GFR Greater than 89 POC Glucose 221 H 274 H Random Glucose 185 H D Hemoglobin A1c Calcium 9.3 D Triglycerides 113 Cholesterol 215 H LDL Cholesterol, Calc 156 H HDL Cholesterol 36.9 L Cholesterol/HDL Ratio 5.82 Free T4 1.05 Urine Color Urine Clarity Urine pH Ur Specific [place] Urine Protein Urine Glucose (UA) Urine Ketones Urine Occult Blood Urine Nitrate Urine Bilirubin Urine Urobilinogen Ur Leukocyte Esterase Urine RBC Urine WBC Urine WBC Clumps Ur Squamous Epith Cells Urine Bacteria Urine Mucus Urine Yeast Micro UA Comment Urine Culture Comments Microbiology 06/28/18 16:55 Clean Catch Urine Urine Culture - Preliminary gram negative rods Assessment and Plan - Plan 1. Bipolar disorder versus Schizophrenia on Psychiatric unit specialist following 2. Diabetes mellitus II, the patient uses Insulin Lantus she states use 30 units BID and regular insulin 10 units three times a day, will start slow with long lasting insulin and regular insulin and follow, stable uncontrolled blood sugar increased Levemir to 15 units BID and giving one dose of 5 units of Levemir now, continue scheduled 5 units with each meal and moderate sliding scale and follow. awaiting for Hemoglobin A1C. 3. Hypokalemia giving replacement. 4. Hyperlipidemia will need Statin to control her Cholesterol. DVT prophylaxis not needed Code Status: Full code Discussed Condition With: patient and nurse. Discharge Planning: as per Attending physician.
[2018-06-30] MEDS ORDERED: Insulin Detemir Inj 1,000 UNIT/10 ML Vial SQ ONE (13:51)
[2018-06-30] MEDS ORDERED: Aluminum/Magnesium/Simethacone Susp 30 ML UDC PO PRN (14:44)
--- NOTE | 2018-06-30 15:03 | P.HPPSY ---
Provisional Diagnosis Admission Date: June 29, 2018 15:45 [place] I.: Referring undifferentiated type Competence Certification of Person's Competence To Provide Express and Informed Consent I have personally examined Priscilla Mathew, a person being served at [facility] on, June 30, 2018 1453. Express and informed consent means consent voluntarily given in writing, by a competent person, after sufficient explanation and disclosure of the subject matter involved to enable the person to make a knowing and willful decision without any element of force, fraud, deceit, duress, or other form of constraint or coercion. This person is 18 years of age or older, is not now known to be incompetent to consent to treatment with a guardian advocate, and does not have a health care surrogate or proxy currently making medical treatment decisions. I have found this person to be one of the following: [] Competent to provide express and informed consent, as defined above, for voluntary admission to this facility and is competent to provide express and informed consent for treatment. He/she has the consistent capacity to make well reasoned, willful, and knowing decisions concerning his or her medical or mental health treatment. The person fully and consistently understands the purpose of the admission for examination/placement and is fully capable of personally exercising all rights [place]] Incompetent to provide express and informed consent to voluntary admission, and this is incompetent to provide express and informed consent to treatment. The person must be transferred to involuntary status and a petition for a guardian advocate filed with the Circuit Court. [] Refusing to provide express and informed consent to voluntary admission but is competent to provide express and informed consent for treatment. The person must be discharged or transferred to involuntary status. Form shall be completed within 24 hours of a person's arrival at the receiving facility and filed in the clinical record of each person: 1. Admitted on a voluntary basis 2. Permitted to provide express and informed consent to his/her own treatment 3. Allowed to transfer from involuntary to voluntary status 4. Prior to permitting a person to consent to his or her own treatment after having been previously found incompetent to consent to treatment. History of Present Illness Capacity: Lacks capacity History of Present Illness: Patient is a 23-year-old white female well known to us from multiple prior contacts both inpatient and outpatient. Comes here under Campbell act signed by Dr. Heriberto Dc it appears as 1 of her physicians in the community dated 2017 at 3 PM that document reviewed and agreed with essentially stating the patient lives with her grandmother has been noncompliant with medication for about a year. She has been crying and stating she is going to kill herself. Also using bad language and yelling out loud paranoid thoughts towards her female neighbor. Throwing objects at the home and slamming doors at this time patient sitting sobbing and crying sitting on her bed in her room nurse roland cohen and counselor Alanna present throughout session patient sobbing crying responses being somewhat childlike and disorganized. Reluctantly acknowledge being noncompliance with medication but saying she loves her grandmother and wishes to return home. She is showing no insight into her disease. She is denying the aggressive behaviors documented in the Campbell act. She is confused about who she sees for her psychotropic medication she said she was on Abilify in the past but med reconciliation shows Seroquel and Resporal patient is vague about any past physical and/or sexual abuse. There is a history of mental illness in the family her mother also has mental illness. There is no significant history of substance abuse that is documented at this time. At this time patient meets criteria for inpatient psychiatric hospitalization of the Campbell act I will do first opinion request second opinion. I feel she does not have capacity thus I will ask for health care surrogate and guardian advocate. Patient is a diabetic at times fairly uncontrolled we will the hospitalist consult will us also - Inpatient Certification I certify that the inpatient services were ordered in accordance with Medicare regulations governing the order. This includes certification that hospital inpatient services are reasonable and necessary and in the case of services not specified as inpatient-only under 42 CFR 419.22(n), that they are appropriately provided as inpatient services in accordance to with the 2-midnight benchmark under 43 CFR 412.3(e) I certify that inpatient psychiatric hospital services are medically necessary. Evaluation and treatment and/or diagnostic testing are expected to improve the patient's condition. The patient needs on a daily basis, active treatment furnished directly by or requiring the supervision of inpatient psychiatric facility personnel. Estimated Total Length of Stay (Days): 8 Plans for Post Hospital Care: Home Review of Systems unobtainable due to mental condition PMFSH - History History Provided By: Patient, Medical Record - Medical History Medical History: Medical History (Last Reviewed 06/29/18 @ 18:40 by Sandee Moore RN) Bipolar 1 disorder, depressed, severe Diabetes mellitus type 2 in nonobese - Surgical History Surgical History: Surgical History (Last Reviewed 06/29/18 @ 18:40 by Sandee Moore RN) No history of previous surgery - Family History Family History: Family History (Last Reviewed 06/29/18 @ 18:40 by Sandee Moore RN) Other Family history of breast cancer - Tobacco History Second Hand Smoke Exposure: No Smoking Status: Never smoker - Alcohol History How Often Do You Have a Drink Containing Alcohol: Never - Substance Use History Substance History: No History of Abuse - Travel History Recent Travel in the [place] Within the Last 8 Weeks: No Recent Travel Out of the Country Within the Last 8 Weeks: No - Immunization History Tetanus Immunization: Unsure Hx Influenza Vaccine This Season: Yes Quality Measures - Psychiatric History Psychological trauma history: Difficult to ascertain patient quite psychotic Violence risk to others in the last 6 months: Patient remained threatening behaviors towards neighbors and grandmother Violence risk to self in the last 6 months: Patient made suicidal statements - Substance Abuse History Drug or alcohol use in the past 12 months: Patient denies - Patient Strengths Patient's strengths (minimum of 2): Patient verbal able access healthcare has supportive family Medications and Allergies Active Medications: Active Medications Al Hydrox/Mg Hydrox/Simethicone (Mag-Al Plus Susp Liq) 30 ml PO Q6H PRN PRN Reason: DYSPEPSIA Last Admin: 06/30/18 09:01 Dose: 30 ml Al Hydrox/Mg Hydrox/Simethicone (Mag-Al Plus Susp Liq) 30 ml PO Q6H PRN PRN Reason: DYSPEPSIA Al Hydroxide/Mg Hydroxide (Milk Of Magnesia Liq) 30 ml PO Q12H PRN PRN Reason: Mild Constipation Al Hydroxide/Mg Hydroxide (Milk Of Magnesia Liq) 30 ml PO Q12H PRN PRN Reason: Mild Constipation Atorvastatin Calcium (Lipitor) 10 mg PO HS LINH Dextrose (D50w Vial) 50 ml IV.PUSH UNSCH PRN PRN Reason: PER HYPOGLYCEMIA PROTOCOL Diphenhydramine HCl (Benadryl) 50 mg PO HS PRN PRN Reason: INSOMNIA Glucagon (Glucagon Inj) 1 mg OTHER PRN PRN PRN Reason: for Hypoglycemia Protocol Hydroxyzine HCl (Atarax) 50 mg PO Q6H PRN PRN Reason: ANXIETY Sodium Chloride (Ns Inj) 1,000 mls @ 0 mls/hr IV.SIG BOLUS [facility] Last Infusion: 06/28/18 19:08 Dose: Infused Insulin Aspart (Novolog Insulin Correctional Sugar Inj) 5 unit SQ TIDAC [facility]; Protocol Last Admin: 06/30/18 13:58 Dose: 5 unit Insulin Aspart (Novolog Insulin Correctional Sugar Inj) 0 unit SQ 08,12,17,21, 03 [facility]; Protocol Last Admin: 06/30/18 13:59 Dose: 7 unit Insulin Detemir (Levemir Inj) 15 unit SQ BID [facility]; Protocol Non-Formulary Medication (Humalog Kwikpen Insulin) 10 units SQ TIDAC [facility] Non-Formulary Medication (Insulin Glargine [Lantus Solostar U-100 Insulin]) 25 unit SQ DAILY [facility] Non-Formulary Medication (Risperidone [Risperidone]) 2 mg PO BID [facility] Sennosides (Senokot) 17.2 mg PO Q12H PRN PRN Reason: Moderate Constipation Trifluridine (Viroptic 1% Opth Drops) drop LEFT EYE DIRECTED [facility] Allergies Allergy/AdvReac Type Severity Reaction Status Date / Time No Known Allergies Allergy Verified 06/28/18 20:50 Home Medications Medication Instructions Recorded Confirmed Type Humalog KwikPen Insulin 10 units SUBCUT TIDAC 06/28/18 06/28/18 History ibuprofen 800 mg PO DIRECTED 06/28/18 06/28/18 History insulin glargine [Lantus Solostar 25 unit SUBCUT DAILY 06/28/18 06/28/18 History U-100 Insulin] quetiapine 50 mg PO DAILY 06/28/18 06/28/18 History risperidone 2 mg PO BID 06/28/18 06/28/18 History trifluridine 1 drp LEFT EYE DIRECTED 06/28/18 06/28/18 History Results - Labs CBC & Chem 7: 06/28/18 14:11 06/30/18 06:25 Labs: Laboratory Results - last 24 hr 06/28/18 06/29/18 06/29/18 16:55 16:24 19:35 Sodium Potassium Chloride Carbon Dioxide Anion Gap BUN Creatinine Estimated GFR POC Glucose 349 H Random Glucose Hemoglobin A1c 15.5 H Calcium Triglycerides Cholesterol LDL Cholesterol, Calc HDL Cholesterol Cholesterol/HDL Ratio Free T4 Urine Color Yellow Urine Clarity Cloudy H Urine pH 7.0 Ur Specific [place] 1.025 Urine Protein 100 H Urine Glucose (UA) 500 or greater Urine Ketones Negative Urine Occult Blood Small H Urine Nitrate Negative Urine Bilirubin Negative Urine Urobilinogen Less than 2 Ur Leukocyte Esterase Large H Urine RBC 28 H Urine WBC Urine WBC Clumps Few H Ur Squamous Epith Cells 10 Urine Bacteria Moderate H Urine Mucus Few H Urine Yeast Few H Micro UA Comment Culture indicated Urine Culture Comments Culture indicated 06/29/18 06/29/18 06/30/18 19:35 19:55 03:02 Sodium Potassium Chloride Carbon Dioxide Anion Gap BUN Creatinine Estimated GFR POC Glucose 397 H 284 H Random Glucose Hemoglobin A1c Calcium Triglycerides 175 H Cholesterol 224 H LDL Cholesterol, Calc 149 H HDL Cholesterol 40.1 Cholesterol/HDL Ratio 5.58 Free T4 Urine Color Urine Clarity Urine pH Ur Specific [place] Urine Protein Urine Glucose (UA) Urine Ketones Urine Occult Blood Urine Nitrate Urine Bilirubin Urine Urobilinogen Ur Leukocyte Esterase Urine RBC Urine WBC Urine WBC Clumps Ur Squamous Epith Cells Urine Bacteria Urine Mucus Urine Yeast Micro UA Comment Urine Culture Comments 06/30/18 06/30/18 06/30/18 06:25 07:35 11:17 Sodium 142 Potassium 3.6 Chloride 108 H D Carbon Dioxide 25.6 Anion Gap 8 BUN 19 H Creatinine 0.48 L Estimated GFR Greater than 89 POC Glucose 221 H 274 H Random Glucose 185 H D Hemoglobin A1c Calcium 9.3 D Triglycerides 113 Cholesterol 215 H LDL Cholesterol, Calc 156 H HDL Cholesterol 36.9 L Cholesterol/HDL Ratio 5.82 Free T4 1.05 Urine Color Urine Clarity Urine pH Ur Specific [place] Urine Protein Urine Glucose (UA) Urine Ketones Urine Occult Blood Urine Nitrate Urine Bilirubin Urine Urobilinogen Ur Leukocyte Esterase Urine RBC Urine WBC Urine WBC Clumps Ur Squamous Epith Cells Urine Bacteria Urine Mucus Urine Yeast Micro UA Comment Urine Culture Comments Exam Vital signs: Vital Signs 06/29/18 17:24 06/30/18 05:41 Temperature 97.8 F 98.3 F Pulse Rate 116 H 100 H Respiratory Rate 18 18 Blood Pressure 123/72 121/65 Pulse Oximetry 94 L 96 Intake & Output 06/29/18 06/30/18 06/30/18 18:59 06:59 18:59 Intake Total 480 / 480 Balance 480 / 480 Weight 72.121 kg Intake: Oral 480 / 480 Other: Weight On Admission 72.121 kg Narrative: Seen quietly on the side of her bed she is tearful and sobbing otherwise in no acute distress she is in no respiratory distress, no complaints of chest pain or abdominal pain. Patient moving all 4 extremities without difficulty Mental Status Examination Appearance: Disheveled Consciousness: Alert Orientation: Person, Place, Date/Time Motor Activity: Normal gait Speech: Pressured, Rapid Language: Adequate Fund of Knowledge: Inadequate Attention and Concentration: Adequate (Fair) Memory: Unremarkable Mood: Sad (Labile tearful at times somewhat histrionic) Affect: Other (Decreased range and intensity) Thought Process & Associations: Intact (Tearful) Thought Content: Appropriate Hallucination Type: None (She denies) Delusion Type: Paranoid (Mildly) Suicidal Ideation: No Suicidal Plan: No Suicidal Intention: No Homicidal Ideation: No Homicidal Plan: No Homicidal Intention: No Insight: Poor Judgment: Poor Assessment and Plan - Assessment (1) Schizophrenia Code(s): F20.9 - Schizophrenia, unspecified Status: Acute - Plan Plan: Estimated LOS: [7] days Patient remains psychotic labile and quite tearful. She meets Campbell criteria I will do first opinion request second opinion. I feel she does not have capacity I will ask for health care surrogate and guardian advocate. We will have hospitalist consult will us related to her multiple medical issues Justification for Continued Inpatient Stay: At this time patient would decompensate if placed in a lower level of care Discharge Planning: To be determined it appears grandmother me not want her back to her home Request Healthcare Surrogate/Guardian Advocate?: Yes (1) Schizophrenia Qualifiers: Schizophrenia type: undifferentiated schizophrenia Qualified Code(s): F20.3 - Undifferentiated schizophrenia
[2018-06-30 15:46] LABS: Hemoglobin A1c 15.9 % (4.3-6.0)
[2018-06-30] MEDS: OPTH LEFT EYE SCH ×2 (18:06)
[2018-06-30] MEDS: TRIFLURIDINE 1% LEFT EYE SCH ×2 (18:06)
--- NOTE | 2018-06-30 18:13 | ECG ---
Date Performed: 06/30/2018 Time Performed: 13:27:20 PTAGE: 33 years EKG: SINUS TACHYCARDIA NONSPECIFIC T-WAVE ABNORMALITY ABNORMAL RHYTHM ECG NO PREVIOUS TRACING DOCTOR: Aleah Biswas Interpretating Date/Time 06/30/2018 18:12:57
[2018-07-01] MEDS: Insulin NovoLOG Aspart Correctional Sugar Inj SQ SCH ×5 (03:38→22:56)
[2018-07-01] MEDS ORDERED: Insulin Detemir Inj 1,000 UNIT/10 ML Vial SQ SCH ×3 (08:47→09:00)
[2018-07-01] MEDS ORDERED: Insulin Detemir Inj 1,000 UNIT/10 ML Vial SQ ONE (09:19)
[2018-07-01] MEDS: TRIFLURIDINE 1% LEFT EYE SCH ×3 (09:26→18:59)
[2018-07-01] MEDS: OPTH LEFT EYE SCH ×3 (09:26→18:59)
--- NOTE | 2018-07-01 12:45 | P.PN ---
Subjective Interval history: This is a pleasant 33 y/o Female who has history of Schizophrenia, has DM II, on this admission she was brought in to ER as Campbell act by Psychiatrist, The patient is alert and oriented to person , place, time. She reports history of bipolar disorder and type 2 diabetes. not taking medicines for her Bipolar disorder, She tried to kill herself, She is taking care of by her grandmother. denied to Psychiatry specialist any homicidal ideations. found with hyperglycemia 342, Drug screen negative, UA showed Leukocyte Esterase given Rocephin 1 Gram fro UTI, with diagnosis of Bipolar disorder versus Schizophrenia, non compliance versus electrolyte abnormality. Stable seen in Psychiatric unit, no complaint at this time, showed me some Onychomycosis. 06/30: Seen in the Psychiatric unit, she states she wants to go home today, no nausea, vomit or diarrhea, uncontrolled blood sugars increased Levemir to 15 units BID, added one dose of 5 unit of Levemir now and continue to monitor, continue sliding scale and schedule Insulin with meals. 07/01: discussed with nurse the patient refused her night dose of Levemir will give a higher dose in am and continue sliding scale and follow during the day to get the best dose for her, no nausea, vomit or diarrhea. Physical Exam Vital signs: Vital Signs 06/30/18 17:49 07/01/18 05:55 Temperature 98.8 F 97.7 F Pulse Rate 118 H 90 Respiratory Rate 16 16 Blood Pressure 109/76 116/65 Pulse Oximetry 96 93 L Intake & Output 06/30/18 07/01/18 07/01/18 18:59 06:59 18:59 Intake Total 720 / 720 Balance 720 / 720 Intake: Oral 720 / 720 Narrative: GENERAL: Well-nourished, No acute distress. SKIN: Warm and dry. HEAD: Normocephalic. Atraumatic. EYES: No scleral icterus. No injection or drainage. CARDIOVASCULAR: Regular rate and rhythm. RESPIRATORY: No accessory muscle use. Results - Labs CBC & Chem 7: 06/28/18 14:11 06/30/18 06:25 Laboratory Results - last 24 hr 06/30/18 06/30/18 06/30/18 06:25 16:51 20:15 POC Glucose 176 H 223 H Hemoglobin A1c 15.9 H 07/01/18 07/01/18 07/01/18 03:19 06:47 11:30 POC Glucose 294 H 355 H 267 H Hemoglobin A1c Microbiology 06/28/18 16:55 Clean Catch Urine Urine Culture - Final Proteus mirabilis Assessment and Plan - Plan 1. Bipolar disorder versus Schizophrenia on Psychiatric unit specialist following 2. Diabetes mellitus II, the patient uses Insulin Lantus she states use 30 units BID and regular insulin 10 units three times a day, she was started on Levemir low dose Insulin sliding scale and scheduled 5 units with each meal and at bed time but she refused yesterday night dose, will give today Levemir 30 units in am and continue with Medium dose sliding scale and try to control this way. Hemoglobin A1C 15.9 giving Poorly controlled DM II probable non compliance issues, makes her Poor prognosis. 3. Hypokalemia replaced. 4. Hyperlipidemia continue statin. DVT prophylaxis not needed Code Status: Full code. Discussed Condition With: patient and nurse. Discharge Planning: as per Attending physician.
--- NOTE | 2018-07-01 13:04 | P.CONPSY ---
Provisional Diagnosis Admission Date: June 29, 2018 15:45 [place] I.: 1. Schizophrenia, undifferentiated type Rule out adjustment disorder with mixed disturbance of emotions and conduct [place] II.: 1. Rule out some degree of underlying intellectual disability History of Present Illness Service: Psychiatry Consult date: 07/01/18 Requesting Physician: Ten Jaffe Reason for Consult: Second opinion for involuntary psychiatric hospitalization Primary Care Provider: Gino Rankin MD History of Present Illness: From Dr. Jaffe's H&P: Patient is a 23-year-old white female well known to us from multiple prior contacts both inpatient and outpatient. Comes here under Campbell act signed by Dr. Heriberto Dc it appears as 1 of her physicians in the community dated 2017 at 3 PM that document reviewed and agreed with essentially stating the patient lives with her grandmother has been noncompliant with medication for about a year. She has been crying and stating she is going to kill herself. Also using bad language and yelling out loud paranoid thoughts towards her female neighbor. Throwing objects at the home and slamming doors at this time patient sitting sobbing and crying sitting on her bed in her room nurse roland cohen and counselor Alanna present throughout session patient sobbing crying responses being somewhat childlike and disorganized. Reluctantly acknowledge being noncompliance with medication but saying she loves her grandmother and wishes to return home. She is showing no insight into her disease. She is denying the aggressive behaviors documented in the Campbell act. She is confused about who she sees for her psychotropic medication she said she was on Abilify in the past but med reconciliation shows Seroquel and Resporal patient is vague about any past physical and/or sexual abuse. There is a history of mental illness in the family her mother also has mental illness. There is no significant history of substance abuse that is documented at this time. At this time patient meets criteria for inpatient psychiatric hospitalization of the Campbell act I will do first opinion request second opinion. I feel she does not have capacity thus I will ask for health care surrogate and guardian advocate. Patient is a diabetic at times fairly uncontrolled we will the hospitalist consult will us also On my examination today, 07/01: Patient seen and examined with nurse. Chart reviewed. Case discussed with nursing staff. Purpose of evaluation discussed with patient. On my examination today, the patient presents as somewhat childlike. Some degree of intellectual disability is possible. The patient admits to making suicidal statements prior to admission but says she was just "playing" with her grandmother. She initially denies any acute stressor but then says that she has been feeling depressed because of her sister who lives out of state. When I ask why sister is making her feel depressed, she replies "one: she's coulter, two : she's mean." Patient denies any suicidal or homicidal ideation presently. She denies any audiovisual hallucinations. Sleep and appetite are reportedly fair. No delusional material. Remainder of the psychiatric ROS is negative. No acute physical complaints. Past psychiatric history: The patient endorses a history of previous psychiatric diagnosis as well as inpatient and outpatient psychiatric treatment but can provide no specifics regarding the clinician with whom she follows or the date or circumstances of hospitalizations. She denies a history of suicide attempt. Family history: The patient reports that her grandmother has some sort of mental illness. Chemical dependency history: The patient denies any abuse of drugs or alcohol. Social history: The patient reports that she lives with her grandmother. She has 3 dogs. She has a high school education. She is not presently in a relationship. Review of Systems All other systems reviewed negative except as stated in HPI PMFSH - History History Provided By: Patient, Medical Record - Medical History Medical History: Medical History (Last Reviewed 06/29/18 @ 18:40 by Sandee Moore RN) Bipolar 1 disorder, depressed, severe Diabetes mellitus type 2 in nonobese - Surgical History Surgical History: Surgical History (Last Reviewed 06/29/18 @ 18:40 by Sandee Moore RN) No history of previous surgery - Family History Family History: Family History (Last Reviewed 06/29/18 @ 18:40 by Sandee Moore RN) Other Family history of breast cancer - Tobacco History Second Hand Smoke Exposure: No Smoking Status: Never smoker - Alcohol History How Often Do You Have a Drink Containing Alcohol: Never - Substance Use History Substance History: No History of Abuse - Travel History Recent Travel in the [place] Within the Last 8 Weeks: No Recent Travel Out of the Country Within the Last 8 Weeks: No - Immunization History Tetanus Immunization: Unsure Hx Influenza Vaccine This Season: Yes Medications and Allergies Active Medications: Active Medications Al Hydrox/Mg Hydrox/Simethicone (Mag-Al Plus Susp Liq) 30 ml PO Q6H PRN PRN Reason: DYSPEPSIA Last Admin: 06/30/18 09:01 Dose: 30 ml Al Hydroxide/Mg Hydroxide (Milk Of Magnesia Liq) 30 ml PO Q12H PRN PRN Reason: Mild Constipation Atorvastatin Calcium (Lipitor) 10 mg PO HS [facility] Last Admin: 06/30/18 21:01 Dose: 10 mg Dextrose (D50w Vial) 50 ml IV.PUSH UNSCH PRN PRN Reason: PER HYPOGLYCEMIA PROTOCOL Diphenhydramine HCl (Benadryl) 50 mg PO HS PRN PRN Reason: INSOMNIA Glucagon (Glucagon Inj) 1 mg OTHER PRN PRN PRN Reason: for Hypoglycemia Protocol Hydroxyzine HCl (Atarax) 50 mg PO Q6H PRN PRN Reason: ANXIETY Sodium Chloride (Ns Inj) 1,000 mls @ 0 mls/hr IV.SIG BOLUS [facility] Last Infusion: 06/28/18 19:08 Dose: Infused Insulin Aspart (Novolog Insulin Correctional Sugar Inj) 0 unit SQ 08,12,17,21, 03 [facility]; Protocol Last Admin: 07/01/18 12:16 Dose: 7 unit Risperidone (Risperdal) 2 mg PO BID [facility] Last Admin: 07/01/18 09:26 Dose: 2 mg Sennosides (Senokot) 17.2 mg PO Q12H PRN PRN Reason: Moderate Constipation Trifluridine (Viroptic 1% Opth Drops) 1 drop LEFT EYE TID [facility] Last Admin: 07/01/18 12:16 Dose: 1 drop Allergies Allergy/AdvReac Type Severity Reaction Status Date / Time No Known Allergies Allergy Verified 06/28/18 20:50 Home Medications Medication Instructions Recorded Confirmed Type Humalog KwikPen Insulin 10 units SUBCUT TIDAC 06/28/18 06/28/18 History ibuprofen 800 mg PO DIRECTED 06/28/18 06/28/18 History insulin glargine [Lantus Solostar 25 unit SUBCUT DAILY 06/28/18 06/28/18 History U-100 Insulin] quetiapine 50 mg PO DAILY 06/28/18 06/28/18 History risperidone 2 mg PO BID 06/28/18 06/28/18 History trifluridine 1 drp LEFT EYE DIRECTED 06/28/18 06/28/18 History Exam Vital signs: Vital Signs 06/30/18 17:49 07/01/18 05:55 Temperature 98.8 F 97.7 F Pulse Rate 118 H 90 Respiratory Rate 16 16 Blood Pressure 109/76 116/65 Pulse Oximetry 96 93 L Intake & Output 06/30/18 07/01/18 07/01/18 18:59 06:59 18:59 Intake Total 720 / 720 Balance 720 / 720 Intake: Oral 720 / 720 Narrative: Physical examination was completed by the ED provider. On my examination today , the patient appears to be in no acute physical distress. No motor abnormalities noted. Labs and vital signs reviewed: Laboratory Results - last 72 hr 06/28/18 06/28/18 06/29/18 16:55 16:55 16:24 Sodium Potassium Chloride Carbon Dioxide Anion Gap BUN Creatinine Estimated GFR POC Glucose 349 H Random Glucose Hemoglobin A1c Calcium Triglycerides Cholesterol LDL Cholesterol, Calc HDL Cholesterol Cholesterol/HDL Ratio Free T4 Urine Color Yellow Urine Clarity Cloudy H Urine pH 7.0 Ur Specific [place] 1.025 Urine Protein 100 H Urine Glucose (UA) 500 or greater Urine Ketones Negative Urine Occult Blood Small H Urine Nitrate Negative Urine Bilirubin Negative Urine Urobilinogen Less than 2 Ur Leukocyte Esterase Large H Urine RBC 28 H Urine WBC Urine WBC Clumps Few H Ur Squamous Epith Cells 10 Urine Bacteria Moderate H Urine Mucus Few H Urine Yeast Few H Micro UA Comment Culture indicated Ur Microscopic Review Not Reportable Urine Culture Comments Culture indicated Urine Opiates Screen Neg Ur Barbiturates Screen Neg Ur Amphetamines Screen Neg U Benzodiazepines Scrn Neg Urine Cocaine Screen Neg U Cannabinoids Screen Neg 06/29/18 06/29/18 06/29/18 19:35 19:35 19:55 Sodium Potassium Chloride Carbon Dioxide Anion Gap BUN Creatinine Estimated GFR POC Glucose 397 H Random Glucose Hemoglobin A1c 15.5 H Calcium Triglycerides 175 H Cholesterol 224 H LDL Cholesterol, Calc 149 H HDL Cholesterol 40.1 Cholesterol/HDL Ratio 5.58 Free T4 Urine Color Urine Clarity Urine pH Ur Specific [place] Urine Protein Urine Glucose (UA) Urine Ketones Urine Occult Blood Urine Nitrate Urine Bilirubin Urine Urobilinogen Ur Leukocyte Esterase Urine RBC Urine WBC Urine WBC Clumps Ur Squamous Epith Cells Urine Bacteria Urine Mucus Urine Yeast Micro UA Comment Ur Microscopic Review Urine Culture Comments Urine Opiates Screen Ur Barbiturates Screen Ur Amphetamines Screen U Benzodiazepines Scrn Urine Cocaine Screen U Cannabinoids Screen 06/30/18 06/30/18 06/30/18 03:02 06:25 06:25 Sodium 142 Potassium 3.6 Chloride 108 H D Carbon Dioxide 25.6 Anion Gap 8 BUN 19 H Creatinine 0.48 L Estimated GFR Greater than 89 POC Glucose 284 H Random Glucose 185 H D Hemoglobin A1c 15.9 H Calcium 9.3 D Triglycerides 113 Cholesterol 215 H LDL Cholesterol, Calc 156 H HDL Cholesterol 36.9 L Cholesterol/HDL Ratio 5.82 Free T4 1.05 Urine Color Urine Clarity Urine pH Ur Specific [place] Urine Protein Urine Glucose (UA) Urine Ketones Urine Occult Blood Urine Nitrate Urine Bilirubin Urine Urobilinogen Ur Leukocyte Esterase Urine RBC Urine WBC Urine WBC Clumps Ur Squamous Epith Cells Urine Bacteria Urine Mucus Urine Yeast Micro UA Comment Ur Microscopic Review Urine Culture Comments Urine Opiates Screen Ur Barbiturates Screen Ur Amphetamines Screen U Benzodiazepines Scrn Urine Cocaine Screen U Cannabinoids Screen 06/30/18 06/30/18 06/30/18 07:35 11:17 16:51 Sodium Potassium Chloride Carbon Dioxide Anion Gap BUN Creatinine Estimated GFR POC Glucose 221 H 274 H 176 H Random Glucose Hemoglobin A1c Calcium Triglycerides Cholesterol LDL Cholesterol, Calc HDL Cholesterol Cholesterol/HDL Ratio Free T4 Urine Color Urine Clarity Urine pH Ur Specific [place] Urine Protein Urine Glucose (UA) Urine Ketones Urine Occult Blood Urine Nitrate Urine Bilirubin Urine Urobilinogen Ur Leukocyte Esterase Urine RBC Urine WBC Urine WBC Clumps Ur Squamous Epith Cells Urine Bacteria Urine Mucus Urine Yeast Micro UA Comment Ur Microscopic Review Urine Culture Comments Urine Opiates Screen Ur Barbiturates Screen Ur Amphetamines Screen U Benzodiazepines Scrn Urine Cocaine Screen U Cannabinoids Screen 06/30/18 07/01/18 07/01/18 20:15 03:19 06:47 Sodium Potassium Chloride Carbon Dioxide Anion Gap BUN Creatinine Estimated GFR POC Glucose 223 H 294 H 355 H Random Glucose Hemoglobin A1c Calcium Triglycerides Cholesterol LDL Cholesterol, Calc HDL Cholesterol Cholesterol/HDL Ratio Free T4 Urine Color Urine Clarity Urine pH Ur Specific [place] Urine Protein Urine Glucose (UA) Urine Ketones Urine Occult Blood Urine Nitrate Urine Bilirubin Urine Urobilinogen Ur Leukocyte Esterase Urine RBC Urine WBC Urine WBC Clumps Ur Squamous Epith Cells Urine Bacteria Urine Mucus Urine Yeast Micro UA Comment Ur Microscopic Review Urine Culture Comments Urine Opiates Screen Ur Barbiturates Screen Ur Amphetamines Screen U Benzodiazepines Scrn Urine Cocaine Screen U Cannabinoids Screen 07/01/18 07/01/18 11:30 15:28 Sodium Potassium Chloride Carbon Dioxide Anion Gap BUN Creatinine Estimated GFR POC Glucose 267 H 126 H Random Glucose Hemoglobin A1c Calcium Triglycerides Cholesterol LDL Cholesterol, Calc HDL Cholesterol Cholesterol/HDL Ratio Free T4 Urine Color Urine Clarity Urine pH Ur Specific [place] Urine Protein Urine Glucose (UA) Urine Ketones Urine Occult Blood Urine Nitrate Urine Bilirubin Urine Urobilinogen Ur Leukocyte Esterase Urine RBC Urine WBC Urine WBC Clumps Ur Squamous Epith Cells Urine Bacteria Urine Mucus Urine Yeast Micro UA Comment Ur Microscopic Review Urine Culture Comments Urine Opiates Screen Ur Barbiturates Screen Ur Amphetamines Screen U Benzodiazepines Scrn Urine Cocaine Screen U Cannabinoids Screen Mental Status Examination Appearance: Appropriate Consciousness: Alert Orientation: Person, Place (At least) Motor Activity: Other (No motor abnormalities noted) Speech: Unremarkable Language: Adequate Fund of Knowledge: Inadequate Attention and Concentration: Adequate (Fair) Memory: Unremarkable Mood: Other (Depressed) Affect: Other (Childlike) Thought Process & Associations: Other ([place]) Thought Content: Appropriate Hallucination Type: None Delusion Type: None Suicidal Ideation: No Suicidal Plan: No Suicidal Intention: No Homicidal Ideation: No Homicidal Plan: No Homicidal Intention: No Insight: Poor Judgment: Poor Assessment and Plan - Assessment (1) Schizophrenia Code(s): F20.9 - Schizophrenia, unspecified Status: Acute - Plan Plan: Given the circumstances of the patient's presentation here and her presentation on my examination today, I concur with Dr. Jaffe that the patient meets criteria for involuntary psychiatric hospitalization under the Campbell act. I have completed the second opinion paperwork. Further care as per Dr. Jaffe. Thank you very much for this consultation. Signing off. Justification for Continued Inpatient Stay: . Request Healthcare Surrogate/Guardian Advocate?: Yes (1) Schizophrenia Qualifiers: Schizophrenia type: undifferentiated schizophrenia Qualified Code(s): F20.3 - Undifferentiated schizophrenia
--- NOTE | 2018-07-01 13:52 | P.PNPSY ---
Subjective Remarks: Patient seen in her room with nurse Radha and medical student Deyanira, chart reviewed, patient compliant medication. Patient remains calm somewhat childlike and concrete in her answers. States she has not talked to the grandmother. There is some slight increased anxiety when discussing placement issues. For now continue treatment. Patient continues to tolerate the Resporal we will consider addition of invega sustain a tomorrow Review of Systems All other systems reviewed negative except as stated in HPI Mental Status Examination Appearance: Disheveled Consciousness: Alert Orientation: Person, Place, Date/Time Motor Activity: Normal gait Speech: Pressured (Somewhat calmer), Rapid (Somewhat calmer) Language: Adequate Fund of Knowledge: Inadequate Attention and Concentration: Adequate (Fair) Memory: Unremarkable Mood: Sad (Labile tearful at times somewhat histrionic) Affect: Other (Decreased range and intensity) Thought Process & Associations: Intact (Tearful) Thought Content: Appropriate Hallucination Type: None (She denies) Delusion Type: Paranoid (Mildly) Suicidal Ideation: No Suicidal Plan: No Suicidal Intention: No Homicidal Ideation: No Homicidal Plan: No Homicidal Intention: No Insight: Poor Judgment: Poor Assessment and Plan - Assessment (1) Schizophrenia Code(s): F20.9 - Schizophrenia, unspecified Status: Acute - Plan Plan: Patient remains somewhat depressed and isolating with little insight. Though she denies voices or visions at this time and denies suicidality at this time. Compliant medication Justification for Continued Inpatient Stay: At this time patient would decompensate a place to a lower level of care Discharge Planning: To be determined perhaps with some persuasion returning to her grandmother's house Request Healthcare Surrogate/Guardian Advocate?: Yes (1) Schizophrenia Qualifiers: Schizophrenia type: undifferentiated schizophrenia Qualified Code(s): F20.3 - Undifferentiated schizophrenia
[2018-07-02] MEDS: Insulin NovoLOG Aspart Correctional Sugar Inj SQ SCH ×4 (03:34→12:22)
[2018-07-02 05:16] VITALS: BP 109/65; PULSE 100; RESP 17; TEMP 98; O2SAT 95
--- NOTE | 2018-07-02 09:01 | P.PN ---
Subjective Interval history: This is a pleasant 33 y/o Female who has history of Schizophrenia, has DM II, on this admission she was brought in to ER as [place] act by Psychiatrist, The patient is alert and oriented to person , place, time. She reports history of bipolar disorder and type 2 diabetes. not taking medicines for her Bipolar disorder, She tried to kill herself, She is taking care of by her grandmother. denied to Psychiatry specialist any homicidal ideations. found with hyperglycemia 342, Drug screen negative, UA showed Leukocyte Esterase given Rocephin 1 Gram fro UTI, with diagnosis of Bipolar disorder versus Schizophrenia, non compliance versus electrolyte abnormality. Stable seen in Psychiatric unit, no complaint at this time, showed me some Onychomycosis. 06/30: Seen in the Psychiatric unit, she states she wants to go home today, no nausea, vomit or diarrhea, uncontrolled blood sugars increased Levemir to 15 units BID, added one dose of 5 unit of Levemir now and continue to monitor, continue sliding scale and schedule Insulin with meals. 07/01: discussed with nurse the patient refused her night dose of Levemir will give a higher dose in am and continue sliding scale and follow during the day to get the best dose for her. 07/02: seen in the unit, stable, discussed with Nurse Mr Phillips no new issues, giving her Insulin Levemir increased to 35 units in am and will give 10 units at bed time. no nausea, vomit or diarrhea. Physical Exam Vital signs: Vital Signs 07/02/18 05:15 Temperature 98 F Pulse Rate 100 H Respiratory Rate 17 Blood Pressure 109/65 Pulse Oximetry 95 Narrative: GENERAL: This is a well-nourished, well-developed patient, in no apparent distress. CARDIOVASCULAR: Regular rate and rhythm. RESPIRATORY: Clear to auscultation. NEURO: Alert & Oriented x4 Results - Labs CBC & Chem 7: 06/28/18 14:11 06/30/18 06:25 Laboratory Results - last 24 hr 07/01/18 07/01/18 07/01/18 11:30 15:28 21:19 POC Glucose 267 H 126 H 144 H 07/02/18 07/02/18 07/02/18 03:14 06:10 08:44 POC Glucose 201 H 200 H 237 H Microbiology 06/28/18 16:55 Clean Catch Urine Urine Culture - Final Proteus mirabilis Assessment and Plan - Plan 1. Bipolar disorder versus Schizophrenia on Psychiatric unit specialist following 2. Diabetes mellitus II, the patient uses Insulin Lantus she states use 30 units BID and regular insulin 10 units three times a day, Hemoglobin A1C 15.9 giving Poorly controlled DM II probable non compliance issues, makes her Poor prognosis. will give today 35 units of Levemir and follow on sliding scale. 3. Hypokalemia replaced. 4. Hyperlipidemia continue statin. DVT prophylaxis not needed Code Status: Full Code. Discussed Condition With: Patient and Nurse. Discharge Planning: as per Attending physician.
[2018-07-02] MEDS: OPTH LEFT EYE SCH ×2 (09:09→13:57)
[2018-07-02] MEDS: TRIFLURIDINE 1% LEFT EYE SCH ×2 (09:09→13:57)
[2018-07-02] MEDS ORDERED: Insulin Detemir Inj 1,000 UNIT/10 ML Vial SQ ONE (09:30)
[2018-07-02] MEDS ORDERED: Paliperidone Inj 234 MG/1.5 ML Syringe IM ONE (12:08)
--- NOTE | 2018-07-02 12:42 | P.DSPSY ---
Psychiatry Discharge Summary Inpatient Psychiatric care?: Yes Advance Directives: Unknown Reason for Unknown:: Due to Patient Condition Mental Health Advance Directive: No Health Care Proxy: No - Admission Admission Date: June 29, 2018 15:45 - Admission Diagnosis (1) Schizophrenia Code(s): F20.9 - Schizophrenia, unspecified Brief History: Patient is a 23-year-old white female well known to us from multiple prior contacts both inpatient and outpatient. Comes here under [place] act signed by Dr. Heriberto Dc it appears as 1 of her physicians in the community dated 2017 at 3 PM that document reviewed and agreed with essentially stating the patient lives with her grandmother has been noncompliant with medication for about a year. She has been crying and stating she is going to kill herself. Also using bad language and yelling out loud paranoid thoughts towards her female neighbor. Throwing objects at the home and slamming doors at this time patient sitting sobbing and crying sitting on her bed in her room nurse roland cohen and counselor Alanna present throughout session patient sobbing crying responses being somewhat childlike and disorganized. Reluctantly acknowledge being noncompliance with medication but saying she loves her grandmother and wishes to return home. She is showing no insight into her disease. She is denying the aggressive behaviors documented in the [place] act. She is confused about who she sees for her psychotropic medication she said she was on Abilify in the past but med reconciliation shows Seroquel and Resporal patient is vague about any past physical and/or sexual abuse. There is a history of mental illness in the family her mother also has mental illness. There is no significant history of substance abuse that is documented at this time. At this time patient meets criteria for inpatient psychiatric hospitalization of the [place] act I will do first opinion request second opinion. I feel she does not have capacity thus I will ask for health care surrogate and guardian advocate. Patient is a diabetic at times fairly uncontrolled we will the hospitalist consult will us also Tobacco Use In Past 30 Days: No How Often Do You Have a Drink Containing Alcohol: Never Hospital Course: Patient's hospital course was uneventful her mood lability and tearfulness persisted but softened. Her childlike behaviors persisted. She denies suicidality homicidality voices or visions. She has been compliant with her medications. She is also being compliant with being given her invega sustained a to 34 mg injection today. Patient's grandmother is willing to have her come back home and stay with her. Patient is willing to follow-up Myke Zeina tran in 1 week for a booster injection. We will need medical clearance before discharge. Hospitalist needs to write for the diabetic treatment before patient discharged - Discharge Discharge Date: 07/02/18 - Discharge Diagnosis (1) Diabetes Diagnosis: Secondary Code(s): E11.9 - Type 2 diabetes mellitus without complications Status: Acute (2) Schizophrenia Diagnosis: Principal Code(s): F20.9 - Schizophrenia, unspecified Status: Acute Discharge Disposition: Home - Discharge Instructions Discharge Diet: Diabetic Diet Activities You Can Perform: Regular- No Restrictions - Discharge Time > 30 minutes Mental Status Examination Appearance: Appropriate Consciousness: Alert Orientation: Person, Place (At least) Motor Activity: Other (No motor abnormalities noted) Speech: Unremarkable Language: Adequate Fund of Knowledge: Inadequate Attention and Concentration: Adequate (Fair) Memory: Unremarkable Mood: Other (Depressed) Affect: Other (Childlike) Thought Process & Associations: Other ([place]) Thought Content: Appropriate Hallucination Type: None Delusion Type: None Suicidal Ideation: No Suicidal Plan: No Suicidal Intention: No Homicidal Ideation: No Homicidal Plan: No Homicidal Intention: No Insight: Poor Judgment: Poor Discharge/Advance Care Plan - Results Vital Signs: Last Vital Signs Temp 98 F 07/02/18 05:15 Pulse 100 H 07/02/18 05:15 Resp 17 07/02/18 05:15 BP 109/65 07/02/18 05:15 Pulse Ox 95 07/02/18 05:15 Lab Results: Abnormal Lab Results 07/01/18 07/01/18 07/02/18 15:28 21:19 03:14 POC Glucose 126 H 144 H 201 H 07/02/18 07/02/18 07/02/18 06:10 08:44 12:02 POC Glucose 200 H 237 H 290 H Laboratory Results Hemoglobin A1c 15.9 % (4.3-6.0) H 06/30/18 06:25 Triglycerides 113 mg/dL (42-150) 06/30/18 06:25 Cholesterol 215 mg/dL (120-200) H 06/30/18 06:25 LDL Cholesterol, Calc 156 mg/dL (0-99) H 06/30/18 06:25 HDL Cholesterol 36.9 mg/dL (40.0-60.0) L 06/30/18 06:25 TSH 0.612 uIU/mL (0.358-3.740) 06/28/18 14:11 Free T4 1.05 ng/dL (0.76-1.46) 06/30/18 06:25 Urine Culture Comments Culture indicated 06/28/18 16:55 Summary of Procedures: None done Pending Results: None - Medications Number of antipsychotic medications at discharge: 1 - Discharge Care Plan Goals to Promote Your Health: * To prevent worsening of your condition and complications * To maintain your health at the optimal level Directions to Meet Your Goals: Take your medications as prescribed Follow your dietary instruction Follow activity as directed Keep your appointments as scheduled Take your immunizations and boosters as scheduled If your symptoms worsen call your PCP, if no PCP go to Urgent Care Center or Emergency Room For 27/04 questions related to your inpatient stay or results of tests pending at discharge, please contact Dr. Ten Jaffe MD at Smoking is Dangerous to Your Health. Avoid second hand smoking (1) Schizophrenia Qualifiers: Schizophrenia type: undifferentiated schizophrenia Qualified Code(s): F20.3 - Undifferentiated schizophrenia (2) Schizophrenia Qualifiers: Schizophrenia type: undifferentiated schizophrenia Qualified Code(s): F20.3 - Undifferentiated schizophrenia
[2018-07-02] MEDS ORDERED: Insulin Detemir Inj 1,000 UNIT/10 ML Vial SQ SCH (21:00)
== END 2018-07-02 17:05 | disposition home or self-care (01) ==
LOC: NEPE 15:50 → NEDA 06-29 15:45 → H260 06-29 16:58
PROVIDERS: ADMIT Psychiatry & Neurology Psychiatry; ATTEND Psychiatry & Neurology Psychiatry